=== PATIENT | male | born 1995 | race American Indian/Alaskan Native ===

== ENCOUNTER 2020-05-06 15:14 | Emergency (ER) | payer SELFPAY ==
[2020-05-06 15:35] VITALS: BP 134/79
[2020-05-06] MEDS ORDERED: DIPHtheria,PERTUSSIS(ACELL),TETANUS VACCINE/PF 0.5 ML VIAL IM ONE (16:23)
[2020-05-06] MEDS ORDERED: ACETAMINOPHEN 325 MG TAB PO ONE (16:23)
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
--- NOTE | 2020-05-06 17:03 | Cat Scan Report ---
FACIAL CT 05/06/2020 HISTORY: Trauma FINDINGS: CT images of the facial bones were obtained. Images are evaluated in the axial, coronal, an d sagittal planes. There is no definite evidence of acute osseous injury. Paranasal sinuses are clear. Orbital structures are intact. IMPRESSION: No evidence of acute osseous injury. All CT scans at this location are performed using dose reduction to ALARA by means of automated expos ure control. Signer Name: Leon Thibodeaux MD Signed: 05/06/2020 4:58 PM Workstation Name: [id number]
== END 2020-05-06 17:28 | disposition home or self-care (01) ==
LOC: ED 15:14
DX: S06.9X9A Unspecified intracranial injury with loss of consciousness of unspecified duration, initial encounter (principal); J34.89 Other specified disorders of nose and nasal sinuses; Z79.899 Other long term (current) drug therapy; Y04.0XXA Assault by unarmed brawl or fight, initial encounter; Y93.89 Activity, other specified; Y92.89 Other specified places as the place of occurrence of the external cause; Y99.8 Other external cause status
CPT/HCPCS: 70450; 70486; 90471; 90715; 99283